=== PATIENT | female | born 1985 | race Caucasian/White ===

== ENCOUNTER → 2016-12-22 | Emergency (ER) | payer BC, OTHER ==
[~2016-12-22] MED LIST: ACETAMINOPHEN325 MG PO; DERMOPLAST SPRA56 GM TOP; MOTRIN800 MG PO; PRENATAL 1+1)(P1 TAB PO; TUCKS1 EACH TOP
== END | disposition disaster alternative care site (69) ==
LOC: GAMB 15:47
DX: S19.9XXA Unspecified injury of neck, initial encounter (principal); M54.2 Cervicalgia; V39.49XA Driver of three-wheeled motor vehicle injured in collision with other motor vehicles in traffic accident, initial encounter; Y92.410 Unspecified street and highway as the place of occurrence of the external cause